=== PATIENT | female | born 1955 | race Caucasian/White ===

== ENCOUNTER → 2020-03-01 11:48 | Outpatient (CLI) | payer OTHER, SELFPAY ==
[2020-03-02 20:59] LABS: COVID19 Sendout Not Detected (Not Detect)
== END ==
PROVIDERS: Visit Provider Physician Assistant
DX: Z11.59 Encounter for screening for other viral diseases (principal)
CPT/HCPCS: 87635

== ENCOUNTER → 2020-04-28 10:58 | Outpatient (CLI) | payer OTHER, SELFPAY ==
[2020-04-29 11:12] LABS: COVID19 Sendout Positive (Not Detect)
== END ==
PROVIDERS: Visit Provider Physician Assistant
DX: U07.1 COVID-19 (principal)
CPT/HCPCS: 87635

== ENCOUNTER → 2022-07-30 08:31 | Outpatient (CLI) | payer MEDICARE, OTHER, SELFPAY ==
[2022-07-30 09:43] LABS: Alanine Aminotransferase 31 IU/L (<35); Albumin 4.3 g/dL (3.5-5.0); Albumin Globulin Ratio 1.3 (1.0-2.8); Alkaline Phosphatase 79 U/L (38-126); Aspartate Aminotransferase 29 IU/L (14-36); Bilirubin Total 0.6 mg/dL (0.2-1.3); Blood Urea Nitrogen 21 mg/dL (7-17); Calcium 9.2 mg/dL (8.4-10.2); Carbon Dioxide 30 mmol/L (22-32); Chloride 103 mmol/L (98-107); Cholesterol 204 mg/dL (140-199); Estimated Glomerular Filt Rate > 60 mL/min (>60); Globulin 3.3 g/dL (1.7-4.1); Glucose 95 mg/dL (80-110); HDL Cholesterol 55 mg/dL (40-60); HEMOLYSIS < 15 (0-50); LDL Cholesterol Calculated 125 mg/dL (<100); Sodium 140 mmol/L (137-145); Total Protein 7.6 g/dL (6.3-8.2); Triglycerides 118 mg/dL (35-150)
[2022-07-30 09:46] LABS: Hemoglobin A1C% w Est Avg Glu 5.7 % (4.0-6.0)
[2022-07-30 09:52] LABS: Free T3, Triiodothyronine Free 3.85 pg/mL (2.77-5.27)
[2022-07-30 10:05] LABS: Thyroid Stimulating Hormone 2.74 uIU/mL (0.47-4.68)
== END ==
PROVIDERS: PCP Nurse Practitioner; Referring Provider Nurse Practitioner; Visit Provider Nurse Practitioner
DX: R73.01 Impaired fasting glucose (principal); E78.5 Hyperlipidemia, unspecified; Z79.899 Other long term (current) drug therapy
CPT/HCPCS: 36415; 80053; 80061; 83036; 84439; 84443; 84481

== ENCOUNTER → 2022-08-03 10:16 | Outpatient (CLI) | payer MEDICARE, OTHER, SELFPAY | PROVIDERS: PCP Nurse Practitioner; Visit Provider Nurse Practitioner | DX: N89.8 Other specified noninflammatory disorders of vagina (principal) | CPT/HCPCS: 87070; 87205 ==

== ENCOUNTER → 2022-08-26 11:19 | Outpatient (CLI) | payer MEDICARE, OTHER, SELFPAY | PROVIDERS: PCP Nurse Practitioner; Referring Provider Nurse Practitioner; Visit Provider Nurse Practitioner | DX: M85.852 Other specified disorders of bone density and structure, left thigh (principal); Z13.820 Encounter for screening for osteoporosis; Z78.0 Asymptomatic menopausal state; Z85.820 Personal history of malignant melanoma of skin | CPT/HCPCS: 77080 ==

== ENCOUNTER → 2022-09-21 09:27 | Outpatient (CLI) | payer MEDICARE, OTHER, SELFPAY ==
--- NOTE | 2022-09-21 09:32 | DI.US.S_ITS ---
PROCEDURE: US CAROTID DOPPLER BI INDICATIONS: MILD CAROTID ARTERY DISEASE AND STENOSIS TECHNIQUE: Color and pulse Doppler interrogation was performed of both carotid systems, with image documentation and velocity measurements. COMPARISON: None. FINDINGS: Stenosis calculations are based on SRU (Society of Radiologists in Ultrasound) criteria. Right side: Brachial blood pressure: 100/65 mm Hg. Common carotid artery peak systolic velocity: 89 cm/sec. Internal carotid artery peak systolic velocity: 115 cm/sec. Internal carotid artery end diastolic velocity: 42 cm/sec. External carotid artery peak systolic velocity: 82 cm/sec. ICA/CCA peak systolic ratio: 1.3 . Abbott scale imaging description: Mild plaque Percent internal carotid artery stenosis: Less than 50% . Vertebral artery: Flow direction is antegrade. Left side: Brachial blood pressure: 101/66 mm Hg. Common carotid artery peak systolic velocity: 97 cm/sec. Internal carotid artery peak systolic velocity: 85 cm/sec. Internal carotid artery end diastolic velocity: 40 cm/sec. External carotid artery peak systolic velocity: 66 cm/sec. ICA/CCA peak systolic ratio: 0.9 . Abbott scale imaging description: No significant plaque Percent internal carotid artery stenosis: Less than 50% . Vertebral artery: Flow direction is antegrade. Incidentally noted hypoechoic solid nodule in the left lobe of the thyroid gland, 0.9 x 0.8 x 0.6 cm. By TI-RADS criteria, no imaging follow-up is necessary for this finding. IMPRESSION: Less than 50% stenosis of the internal carotid arteries bilaterally. Dictated by: Jacinto Jhaveri M.D. on 09/21/2022 at 21:01 Approved by: Jacinto Jhaveri M.D. on 09/21/2022 at 21:06
--- NOTE | 2022-09-21 09:32 | DI.MG.S_ITS ---
BILATERAL DIGITAL SCREENING MAMMOGRAM 3D/2D WITH CAD: 09/21/2022 CLINICAL: Routine screening. Comparison is made to exams dated: 10/05/2020 mammogram, 03/27/2019 mammogram, and 10/25/2017 mammogram - outside location. Both breasts are almost entirely fatty (category a/<25% glandular tissue). Current study was also evaluated with a Computer Aided Detection (CAD) system. No significant masses, calcifications, or other findings are seen in either breast. There has been no significant interval change. IMPRESSION: NEGATIVE There is no mammographic evidence of malignancy. A 1 year screening mammogram is recommended. Based on the Tyrer Cuzick model (a risk assessment model) the patient's lifetime risk is 3.1% and her 10 year risk is 1.5%. According to the ACR, ACS, and NCCN guidelines, an annual breast MRI exam along with mammogram is recommended if the patient's lifetime risk is 20% or greater. This exam was interpreted at Station ID: [id number]. NOTE: For mammograms, a report in lay terms will be sent to the patient. Approximately 15% of breast malignancies will not be visualized mammographically. In the management of a palpable breast mass, a negative mammogram must not discourage biopsy of a clinically suspicious lesion. Electronically Signed By: Jamie Luna M.D., jr/january:09/21/2022 15:02:52 letter sent: Normal Exam ACR BI-RADS Category 1: Negative 3341F
== END ==
PROVIDERS: PCP Nurse Practitioner; Referring Provider Nurse Practitioner; Visit Provider Nurse Practitioner
DX: Z12.31 Encounter for screening mammogram for malignant neoplasm of breast (principal); I65.23 Occlusion and stenosis of bilateral carotid arteries; I77.9 Disorder of arteries and arterioles, unspecified; Z13.6 Encounter for screening for cardiovascular disorders
CPT/HCPCS: 77063; 77067; 93880

== ENCOUNTER 2023-03-24 08:28 | Day surgery (SDC) | payer MEDICARE, OTHER, SELFPAY ==
[2023-03-24] MEDS: LACTATED RINGERS 1,000 ML 42 ML IV (08:39)
[2023-03-24 08:47] VITALS: BMI 23.6
[2023-03-24 08:59] VITALS: BP 109/72; PULSE 66; RESP 16; TEMP 36.4; O2SAT 98
--- NOTE | 2023-03-24 09:31 | PM.HP.1 ---
History of Present Illness History of Present Illness Date Patient Seen: 03/24/23 Time Patient Seen: 09:31 Chief complaint: SDC Narrative: Juliette is a 67-year-old woman who is here for colonoscopy. Her last 1 was about 10 years ago and was normal. No family history of colon cancer. [facility] Medical History Actinic keratosis (~2005) Elevated fasting blood sugar Endometriosis Fibroids Headache Hearing loss HLD (hyperlipidemia) Malignant melanoma (~2005) Melanoma Mouth sores (~2017) Osteopenia determined by x-ray Postmenopausal HRT (hormone replacement therapy) Rheumatic fever Surgical History Anesthesia History of hysterectomy (~1994) History of surgery (~1995) Family History Father History of heart disease Mother Alcoholic Liver failure Sister Diabetes mellitus Hyperlipidemia Hypertension Mental health problem Sister Hypertension Sister Diabetes mellitus Sister Diabetes mellitus Mental health problem Depression Sister Hypertension Social History (System 09/02/22 @ 08:02 by Clarissa Manrique) household members: spouse Smoking Status: Never smoker alcohol intake: current Meds Home Medications and Allergies Home Medications Medication Instructions Recorded Confirmed Type conjugated estrogens 0.625 mg/gram 0.625 mg vaginal DAILY 08/03/22 03/24/23 Rx vaginal cream (Premarin) post-menapausal #30 grams simvastatin 10 mg tablet 10 mg PO DAILY HIGH CHOLESTEROL 08/03/22 03/24/23 Rx #90 tabs valacyclovir 500 mg tablet 500 mg PO DAILY mouth soars #90 08/05/22 03/24/23 Rx tabs estradiol 0.5 mg tablet 0.5 mg PO DAILY #90 tabs 09/09/22 10/28/22 Rx sodium,potassium,mag sulfates 17.5 See Rx Instructions PO .COMPLEX 12/22/22 03/24/23 Rx gram-3.13 gram-1.6 gram oral soln #354 mL (Suprep Bowel Prep Kit) Allergies Allergy/AdvReac Type Severity Reaction Status Date / Time No Known Drug Allergies Allergy Unverified 09/02/22 08:02 Exam Vital Signs (past 8 hours): - 03/24/23 08:59 Temperature 97.6 F Pulse Rate 66 Respiratory Rate 16 Blood Pressure 109/72 Pulse Oximetry 98 Oxygen Delivery Method Room Air Oxygen Delivery Method Room Air Const General: healthy appearing Assessment & Plan Assessment and plan (1) Colon cancer screening: Status: Acute Plan We reviewed the risks and benefits of colonoscopy for colon cancer screening and she would like to proceed.
[2023-03-24 10:00] VITALS: BP 99/61; PULSE 57; RESP 16; TEMP 36.2; O2SAT 96
--- NOTE | 2023-03-24 10:04 | P.OP.COLON_ITS ---
Operative Date/Time/Diagnoses Date of procedure: 03/24/23 Time of procedure: 10:04 Pre-op diagnosis: Colon cancer screening Post-op diagnosis: same Procedure & Clinicians Study performed: Colonoscopy Same procedure as scheduled: Yes Surgeon: Maximo Saba Procedure Notes Procedure in detail: Surgeon: Maximo Saba MD Anesthesia: Leanna Jaeger CRNA Procedure: The patient was brought to the endoscopy suite, placed in left lateral decubitus position. The patient was connected to monitoring devices. A time-out was performed. Sedation was administered. Once the patient was adequately sedated, a digital rectal exam was performed and was normal. The scope was then inserted and advanced to the cecum where the appendiceal orifice was identified and photographed. The scope was then slowly withdrawn over greater than 6 minutes. The mucosa was thoroughly inspected. No polyps or othe r abnormalities were found. The scope was retroflexed in the rectum. No abnormalities were seen. The scope was straightened and removed. The patient was awakened and brought to recovery. Scope withdrawal time: 7 minutes Sedation time: 11 minutes EBL: 0 Findings: Normal colon Post-procedure Recommendations: Colonoscopy in 10 years Disposition: PACU
[2023-03-24 10:05] VITALS: BP 101/59; PULSE 52; RESP 16; O2SAT 97
--- NOTE | 2023-03-24 10:05 | SUR.PHASEI ---
Received to PACU after colonoscopy with MAC. Report from WENDI Ram and Lynnette Zhang RN.
[2023-03-24 10:10] VITALS: BP 98/55; PULSE 52; RESP 11; O2SAT 98
[2023-03-24 10:15] VITALS: BP 103/86; PULSE 52; RESP 20; TEMP 36.5; O2SAT 98
[2023-03-24 10:16] VITALS: BP 101/80; PULSE 52; RESP 16; TEMP 36.5; O2SAT 99
== END 2023-03-24 10:40 | disposition home or self-care (01) ==
PROVIDERS: PCP Nurse Practitioner; Referring Provider Surgery; Visit Provider Surgery
PROC: 0DJD8ZZ Inspection of Lower Intestinal Tract, Via Natural or Artificial Opening Endoscopic (ICD-10-PCS; CPT 45378; principal; 2023-03-24 09:30)
DX: Z12.11 Encounter for screening for malignant neoplasm of colon (principal)
CPT/HCPCS: G0121

== ENCOUNTER → 2023-10-05 07:45 | Outpatient (CLI) | payer MEDICARE, OTHER, SELFPAY ==
--- NOTE | 2023-10-05 07:46 | DI.MG.S_ITS ---
BILATERAL DIGITAL SCREENING MAMMOGRAM 3D/2D WITH CAD: 10/05/2023 CLINICAL: Routine screening. Comparison is made to exams dated: 09/21/2022 mammogram - [facility], 10/05/2020 mammogram, and 03/27/2019 mammogram - outside location. Both breasts are heterogeneously dense, which may obscure small masses (category c / 51-75% glandular tissue). Current study was also evaluated with a Computer Aided Detection (CAD) system. No significant masses, calcifications, or other findings are seen in either breast. There has been no significant interval change. IMPRESSION: NEGATIVE There is no mammographic evidence of malignancy. A 1 year screening mammogram is recommended. Based on the Tyrer Cuzick model (a risk assessment model) the patient's lifetime risk is 6.8% and her 10 year risk is 3.4%. According to the ACR, ACS, and NCCN guidelines, an annual breast MRI exam along with mammogram is recommended if the patient's lifetime risk is 20% or greater. This exam was interpreted at Station ID: [id number]. NOTE: For mammograms, a report in lay terms will be sent to the patient. Approximately 15% of breast malignancies will not be visualized mammographically. In the management of a palpable breast mass, a negative mammogram must not discourage biopsy of a clinically suspicious lesion. Electronically Signed By: Philipp gaspar/january:10/05/2023 12:11:49 letter sent: Normal Exam ACR BI-RADS Category 1: Negative 3341F
== END ==
LOC: MAMMO 07:45
PROVIDERS: PCP Nurse Practitioner; Referring Provider Nurse Practitioner; Visit Provider Nurse Practitioner
DX: Z12.31 Encounter for screening mammogram for malignant neoplasm of breast (principal); R92.333 Mammographic heterogeneous density, bilateral breasts
CPT/HCPCS: 77063; 77067

== ENCOUNTER → 2024-05-04 08:18 | Outpatient (CLI) | payer MEDICARE, OTHER, SELFPAY ==
[2024-05-04 10:25] LABS: Alanine Aminotransferase 27 IU/L (<35); Albumin 4.3 g/dL (3.5-5.0); Albumin Globulin Ratio 1.4 (1.0-2.8); Alkaline Phosphatase 66 U/L (38-126); Aspartate Aminotransferase 35 IU/L (14-36); BUN Creatinine Ratio 22.1 (6-22); Bilirubin Total 0.5 mg/dL (0.2-1.3); Blood Urea Nitrogen 21 mg/dL (7-17); Calcium 9.4 mg/dL (8.4-10.2); Carbon Dioxide 30 mmol/L (22-32); Chloride 103 mmol/L (98-107); Cholesterol 263 mg/dL (140-199); Estimated Glomerular Filt Rate > 60 mL/min (>60); Globulin 3.1 g/dL (1.7-4.1); Glucose 90 mg/dL (80-110); HDL Cholesterol 75 mg/dL (40-60); HEMOLYSIS < 15 (0-50); LDL Cholesterol Calculated 160 mg/dL (<100); Potassium 4.3 mmol/L (3.4-5.1); Sodium 138 mmol/L (137-145); Total Protein 7.4 g/dL (6.3-8.2); Triglycerides 139 mg/dL (35-150)
== END ==
LOC: LAB 08:19
PROVIDERS: PCP Registered Nurse Diabetes Educator; Referring Provider Nurse Practitioner; Visit Provider Nurse Practitioner
DX: E78.5 Hyperlipidemia, unspecified (principal); Z79.899 Other long term (current) drug therapy
CPT/HCPCS: 36415; 80053; 80061

== ENCOUNTER → 2024-06-22 08:59 | Outpatient (CLI) | payer MEDICARE, OTHER, SELFPAY ==
--- NOTE | 2024-06-22 09:01 | DI.RAD.S_ITS ---
PROCEDURE: XR LUMBAR SPINE MIN 4V INDICATIONS: BACK PAIN TECHNIQUE: Four views of the lumbar spine were acquired including bilateral obliques. COMPARISON: None. FINDINGS: Bones: Five nonrib-bearing vertebrae are present. There is normal bony alignment. No vertebral body compression fractures. No suspicious bony lesions. Mild degenerative joint space loss and slight hypertrophy at the L4-5 and L5-S1 facet joints. Soft tissues: Overlying bowel gas pattern is normal. No suspicious soft tissue calcifications. Oblique images: No pars defects. IMPRESSION: Mild lower lumbar facet arthropathy. Dictated by: Laura Benavidez M.D. on 06/22/2024 at 11:49 Approved by: Laura Benavidez M.D. on 06/22/2024 at 11:49
== END ==
PROVIDERS: PCP Registered Nurse Diabetes Educator; Referring Provider Physical Medicine & Rehabilitation; Visit Provider Physical Medicine & Rehabilitation
DX: M54.30 Sciatica, unspecified side (principal); M47.816 Spondylosis without myelopathy or radiculopathy, lumbar region; M47.817 Spondylosis without myelopathy or radiculopathy, lumbosacral region
CPT/HCPCS: 72110

== ENCOUNTER → 2024-07-12 11:34 | Outpatient (CLI) | payer MEDICARE, OTHER, SELFPAY ==
--- NOTE | 2024-07-12 11:36 | DI.MRI.S_ITS ---
PROCEDURE: MR LUMBAR SPINE WO CON INDICATIONS: Right L5 Radicu TECHNIQUE: Noncontrast sagittal T1 spin echo and T2 fast echo, sagittal STIR, and T2 fast spin echo through the lumbar spine. In cases with scoliosis, additional coronal T2 fast spin echo may be performed. COMPARISON: [facility], CR, XR LUMBAR SPINE MIN 4V, 06/22/2024, 9:09.No neural FINDINGS: Image quality: Excellent. Alignment and Curvature: There is normal bony alignment. Bone Marrow: Marrow is of normal overall signal. No acute vertebral body compression fractures. Spinal Cord: Conus medullaris terminates at the L1 level. Visualized cord demonstrates normal signal and size. Paraspinous Soft Tissues: No paravertebral masses. T12-L1: Normal appearance. L1-L2: Loss of disc signal. Mild, diffuse disc bulge. Mild bilateral facet hypertrophy. No central stenosis. No neural foraminal narrowing. No neural compression. L2-L3: Loss of disc signal. Mild, diffuse disc bulge. Mild bilateral facet hypertrophy. No central stenosis. No neural foraminal narrowing. No neural compression. L3-L4: Loss of disc signal. Mild, diffuse disc bulge. Mild bilateral facet hypertrophy. No central stenosis. No neural foraminal narrowing. No neural compression. L4-L5: Loss of disc signal. Mild, diffuse disc bulge. Mild bilateral facet hypertrophy. No central stenosis. No neural foraminal narrowing. No neural compression. L5-S1: Loss of disc signal. Mild, diffuse disc bulge. Mild bilateral facet hypertrophy. No central stenosis. No neural foraminal n compression. arrowing. IMPRESSION: Multilevel degenerative disc disease. Multilevel facet arthropathy. No severe central canal stenosis. No severe neural foraminal stenosis. No neural compression. Dictated by: Anastasia Stoll MD, PhD on 07/12/2024 at 12:24 Approved by: Anastasia Stoll MD, PhD on 07/12/2024 at 12:30
== END ==
PROVIDERS: PCP Registered Nurse Diabetes Educator; Referring Provider Physical Medicine & Rehabilitation; Visit Provider Physical Medicine & Rehabilitation
DX: M47.816 Spondylosis without myelopathy or radiculopathy, lumbar region (principal); M47.817 Spondylosis without myelopathy or radiculopathy, lumbosacral region; M51.369 Other intervertebral disc degeneration, lumbar region without mention of lumbar back pain or lower extremity pain; M51.379 Other intervertebral disc degeneration, lumbosacral region without mention of lumbar back pain or lower extremity pain
CPT/HCPCS: 72148

== ENCOUNTER 2024-12-28 12:58 | Emergency (ER) | payer MEDICARE, OTHER, SELFPAY ==
[2024-12-28 13:12] VITALS: BP 110/57; PULSE 82; RESP 20; TEMP 37; O2SAT 96; BMI 23.1
--- NOTE | 2024-12-28 16:11 | EKG_ITS ---
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
[2024-12-28] MEDS: ONDANSETRON 4 MG/2 ML INJ IV (16:35)
[2024-12-28 16:41] LABS: Add Manual Diff / Slide Review NO; Basophils Absolute Auto 0 /uL (0-100); Basophils Percent Auto 0.4 % (0-2); Eosinophils Absolute Auto 0 /uL (0-450); Eosinophils Percent Auto 0.4 % (2-4); Hematocrit 44.7 % (36-46); Hemoglobin 15.2 g/dL (12.0-16.0); Lymphocytes Absolute Auto 1300 /uL (1100-4500); Lymphocytes Percent Auto 21.7 % (25-40); Mean Corpuscular Hemoglobin 32.2 PG (26-34); Mean Corpuscular Volume 94.6 fL (80-100); Monocytes Absolute Auto 400 /uL (0-900); Neutrophils Absolute Auto 4400 /uL (1500-7000); Neutrophils Percent Auto 71.5 % (50-75); Platelet Count 223 X10^3/uL (150-400); Red Blood Cell Count 4.73 X10^6/uL (4.0-5.2); White Blood Cell Count 6.1 X10^3/uL (4.5-11.0)
[2024-12-28 16:58] LABS: Alanine Aminotransferase 32 IU/L (<35); Albumin 4.7 g/dL (3.5-5.0); Albumin Globulin Ratio 1.3 (1.0-2.8); Alkaline Phosphatase 64 U/L (38-126); Aspartate Aminotransferase 39 IU/L (14-36); BUN Creatinine Ratio 22.2 (6-22); Bilirubin Total 0.6 mg/dL (0.2-1.3); Blood Urea Nitrogen 20 mg/dL (7-17); Calcium 9.5 mg/dL (8.4-10.2); Carbon Dioxide 27 mmol/L (22-32); Chloride 102 mmol/L (98-107); Estimated Glomerular Filt Rate > 60 mL/min (>60); Globulin 3.6 g/dL (1.7-4.1); Glucose 88 mg/dL (70-99); HEMOLYSIS < 15 (0-50); Lipase 62 U/L (23-300); Potassium 4.2 mmol/L (3.4-5.1); Sodium 139 mmol/L (137-145); Total Protein 8.3 g/dL (6.3-8.2)
--- NOTE | 2024-12-28 17:58 | ED.ABDPAIN ---
HPI - Abdominal Pain <Shirley Yap PA-C - Last Filed: 12/28/24 19:27> General Chief Complaint: Abdominal Pain Stated Complaint: Took wrong dose of tirzepatide Time Seen by Provider: 12/28/24 16:34 Mode of arrival: Ambulatory History of Present Illness HPI narrative: Ms. Pacheco is a pleasant 69-year-old female with a past medical history of hyperlipidemia, melanoma, increased fasting blood sugar who presents to the emergency department for nausea, vomiting, abdominal cramping after accidentally administering a higher dose of tirzepatide then she intended. Patient purchased [employer] to help with weight loss, she was supposed to take her 1st dose of 0.25 mL but she accidentally injected 0.5 mL at 12:45 p.m. yesterday. Today when patient woke up she felt extremely nauseous, had nonbloody vomiting, abdominal cramping, and is now also starting to have a headache. She is feeling lightheaded. She comes to the ER for further management as she is unsure what to do since she took too high of a dose. She denies abdominal pain, fevers, chills, dysuria. Related Data Home Medications ?Medication ?Instructions ?Recorded ?Confirmed Fluorouracil Cream 5% .Route 08/08/23 08/13/24 Metronidazole 0.75% cream .Route 08/08/23 08/13/24 Previous Rx's ?Medication ?Instructions ?Recorded conjugated estrogens 0.625 mg/gram See Rx Instructions vaginal 08/13/24 vaginal cream (Premarin) .COMPLEX post-menapausal #30 grams estradiol 0.5 mg tablet 0.5 mg PO DAILY #90 tabs 08/13/24 simvastatin 10 mg tablet 10 mg PO DAILY HIGH CHOLESTEROL 08/13/24 #90 tabs valacyclovir 1 gram tablet 1,000 mg PO BID for acute 08/13/24 breakouts #20 tabs ondansetron 4 mg disintegrating 4 mg PO Q8H PRN nausea and 12/28/24 tablet vomiting #20 tabs Allergies Allergy/AdvReac Type Severity Reaction Status Date / Time No Known Drug Allergies Allergy Verified 12/28/24 13:12 Review of Systems <Shirley Yap PA-C - Last Filed: 12/28/24 19:27> Review of Systems ROS Unobtainable: All systems reviewed & are unremarkable except as noted in HPI and below Patient History <Shirley Yap PA-C - Last Filed: 12/28/24 19:27> Medical History Recurrent cold sores Dyslipidemia Herniated nucleus pulposus, L5-S1 Facet arthropathy, lumbar Adverse reaction to statin medication Amputation of right thumb Osteopenia determined by x-ray Postmenopausal HRT (hormone replacement therapy) Melanoma Actinic keratosis (~2005) Headache Rheumatic fever Mouth sores (~2017) Hearing loss Fibroids Endometriosis Malignant melanoma (~2005) Elevated fasting blood sugar Surgical History Anesthesia History of surgery (~1995) History of hysterectomy (~1994) Family History Father History of heart disease Mother Alcoholic Liver failure Sister Diabetes mellitus Hyperlipidemia Hypertension Mental health problem Sister Hypertension Sister Diabetes mellitus Sister Diabetes mellitus Mental health problem Depression Sister Hypertension Social History household members: spouse Smoking Status: Never smoker alcohol intake: current Smoking Status: Never smoker Exam <Shirley Yap PA-C - Last Filed: 12/28/24 19:27> Narrative Exam Narrative: GENERAL: 69 year old patient appears stated age. Well-developed patient, in no acute distress. HEAD: Atraumatic. Normocephalic. CARDIOVASCULAR: Regular rate and rhythm. RESPIRATORY: ?Nonlabored respirations. ?Speaking in clear, full sentences. ?Clear to auscultation. Breath sounds equal bilaterally. No wheezes, rales, or rhonchi. ? GASTROINTESTINAL: Abdomen soft, non-tender, nondistended. BS present. EXTREMITIES: No edema or joint tenderness. NEURO: AOx3. ?Clear speech. ?Moves all 4 extremities appropriately. SKIN: No rash or erythema of visible areas Initial Vital Signs Initial Vital Signs: Vital Signs Temperature 98.6 F 12/28/24 13:12 Pulse Rate 82 12/28/24 13:12 Respiratory Rate 20 12/28/24 13:12 Blood Pressure 110/57 L 12/28/24 13:12 Pulse Oximetry 96 12/28/24 13:12 Oxygen Delivery Method Room Air 12/28/24 13:12 <Gabriella Wood DO - Last Filed: 01/07/25 19:39> Initial Vital Signs Initial Vital Signs: Vital Signs Temperature 98.6 F 12/28/24 13:12 Pulse Rate 82 12/28/24 13:12 Respiratory Rate 20 12/28/24 13:12 Blood Pressure 110/57 L 12/28/24 13:12 Pulse Oximetry 96 12/28/24 13:12 Oxygen Delivery Method Room Air 12/28/24 13:12 Course <Shirley Yap PA-C - Last Filed: 12/28/24 19:27> Orders Ordered: Discontinued Medications Sodium Chloride (Normal Saline 0.9%) 500 mls @ 1,000 mls/hr IV BOLUS ONE Stop: 12/28/24 18:22 Last Infusion: 12/28/24 18:32 Dose: Infused Documented By: Admin: 12/28/24 18:07 Dose: 1,000 mls/hr Documented By: ANNEMARIE Ketorolac Tromethamine (Ketorolac 30 Mg/Ml Vial) 15 mg IV NOW ONE Stop: 12/28/24 17:54 Last Admin: 12/28/24 18:06 Dose: 15 mg Documented By: ANNEMARIE Ondansetron HCl (Ondansetron 4 Mg/2 Ml Inj) 4 mg IV NOW PRN PRN Reason: Nausea And Vomiting Last Admin: 12/28/24 16:35 Dose: 4 mg Documented By: Ondansetron HCl (Ondansetron 4 Mg Odt) 4 mg PO NOW PRN PRN Reason: Nausea And Vomiting Vital Signs Vital signs: Vital Signs - 8 hr 12/28/24 13:12 Temperature 98.6 F Pulse Rate 82 Respiratory Rate 20 Blood Pressure 110/57 L Pulse Oximetry 96 Oxygen Delivery Method Room Air <Gabriella Wood DO - Last Filed: 01/07/25 19:39> Orders Ordered: Discontinued Medications Sodium Chloride (Normal Saline 0.9%) 500 mls @ 1,000 mls/hr IV BOLUS ONE Stop: 12/28/24 18:22 Last Infusion: 12/28/24 18:32 Dose: Infused Documented By: Admin: 12/28/24 18:07 Dose: 1,000 mls/hr Documented By: ANNEMARIE Ketorolac Tromethamine (Ketorolac 30 Mg/Ml Vial) 15 mg IV NOW ONE Stop: 12/28/24 17:54 Last Admin: 12/28/24 18:06 Dose: 15 mg Documented By: ANNEMARIE Ondansetron HCl (Ondansetron 4 Mg/2 Ml Inj) 4 mg IV NOW PRN PRN Reason: Nausea And Vomiting Last Admin: 12/28/24 16:35 Dose: 4 mg Documented By: Ondansetron HCl (Ondansetron 4 Mg Odt) 4 mg PO NOW PRN PRN Reason: Nausea And Vomiting Vital Signs Vital signs: Vital Signs - 8 hr 12/28/24 13:12 Temperature 98.6 F Pulse Rate 82 Respiratory Rate 20 Blood Pressure 110/57 L Pulse Oximetry 96 Oxygen Delivery Method Room Air MDM - Abdominal Pain <Shirley Trudy Yap PA-C - Last Filed: 12/28/24 19:27> Medical Records Attestation: I reviewed the patient's medical records. Lab Data 12/28/24 16:29 12/28/24 16:29 Labs: Lab Results 12/28/24 Range/Units 16:29 WBC 6.1 (4.5-11.0) X10^3/uL RBC 4.73 (4.0-5.2) X10^6/uL Hgb 15.2 (12.0-16.0) g/dL Hct 44.7 (36-46) % MCV 94.6 (80-100) fL MCH 32.2 (26-34) PG MCHC 34.0 (30-36) % RDW 14.0 (11.6-14.8) % Plt Count 223 (150-400) X10^3/uL Neut % (Auto) 71.5 (50-75) % Lymph % (Auto) 21.7 L (25-40) % Divide % (Auto) 6.0 (3-14) % Eos % (Auto) 0.4 L (2-4) % Baso % (Auto) 0.4 (0-2) % Neut # (Auto) 4400 (3799-2007) /uL Lymph # (Auto) 1300 (7339-2694) /uL Divide # (Auto) 400 (0-900) /uL Eos # (Auto) 0 (0-450) /uL Baso # (Auto) 0 (0-100) /uL Sodium 139 (137-145) mmol/L Potassium 4.2 (3.4-5.1) mmol/L Chloride 102 (98-107) mmol/L Carbon Dioxide 27 (22-32) mmol/L BUN 20 H (7-17) mg/dL Creatinine 0.90 (0.52-1.04) mg/dL Estimated GFR > 60 (>60) mL/min BUN/Creatinine Ratio 22.2 H (6-22) Glucose 88 (70-99) mg/dL Calcium 9.5 (8.4-10.2) mg/dL Total Bilirubin 0.6 (0.2-1.3) mg/dL AST 39 H (14-36) IU/L ALT 32 (<35) IU/L Alkaline Phosphatase 64 (38-126) U/L Total Protein 8.3 H (6.3-8.2) g/dL Albumin 4.7 (3.5-5.0) g/dL Globulin 3.6 (1.7-4.1) g/dL Albumin/Globulin Ratio 1.3 (1.0-2.8) Lipase 62 (23-300) U/L [facility] Narrative Medical decision making narrative: 69-year-old female with a past medical history of hyperlipidemia, melanoma, increased fasting blood sugar who presents to the emergency department for nausea, vomiting, abdominal cramping after accidentally administering a higher dose of tirzepatide then she intended. Differential diagnosis includes but isn't limited to medication air, adverse drug reaction, dehydration, gastroenteritis, etc. On exam the patient is in no acute distress, nontoxic appearing, vital signs within normal limits, abdomen soft and nontender. Lab work and Zofran obtained prior to my evaluation, patient is feeling much better at this time. We will treat with 500 mL IV fluid, Toradol for headache, recommended small but frequent sips of electrolyte beverage, discussed the patient will likely have nausea for at least the next week. Patient was shown the appropriate way to dose her medication. ECG was obtained due to nursing initiated abdominal pain order set which reveals normal sinus rhythm with a rate of 69 beats per minute and a QTC of 426. Patient not having any chest pain. Labs reveal normal WBC count 6.1, hemoglobin 15.2 hematocrit 44.7, BUN 20, creatinine 0.91, BUN creatinine ratio slightly elevated 22.2. AST very mildly elevated 39, normal ALT, alkaline phosphatase, normal lipase 62. Patient feeling much better after ED treatment, requesting discharge home, tolerating p.o.. Zofran sent to pharmacy of choice. Discussed supportive care, ED return precautions. Patient verbalized understanding all information agreeable with the plan. She is stable for discharge home. <Gabriella Wood, DO - Last Filed: 01/07/25 19:39> Lab Data Labs: Lab Results 12/28/24 Range/Units 16:29 WBC 6.1 (4.5-11.0) X10^3/uL RBC 4.73 (4.0-5.2) X10^6/uL Hgb 15.2 (12.0-16.0) g/dL Hct 44.7 (36-46) % MCV 94.6 (80-100) fL MCH 32.2 (26-34) PG MCHC 34.0 (30-36) % RDW 14.0 (11.6-14.8) % Plt Count 223 (150-400) X10^3/uL Neut % (Auto) 71.5 (50-75) % Lymph % (Auto) 21.7 L (25-40) % Divide % (Auto) 6.0 (3-14) % Eos % (Auto) 0.4 L (2-4) % Baso % (Auto) 0.4 (0-2) % Neut # (Auto) 4400 (0702-2537) /uL Lymph # (Auto) 1300 (6541-8298) /uL Divide # (Auto) 400 (0-900) /uL Eos # (Auto) 0 (0-450) /uL Baso # (Auto) 0 (0-100) /uL Sodium 139 (137-145) mmol/L Potassium 4.2 (3.4-5.1) mmol/L Chloride 102 (98-107) mmol/L Carbon Dioxide 27 (22-32) mmol/L BUN 20 H (7-17) mg/dL Creatinine 0.90 (0.52-1.04) mg/dL Estimated GFR > 60 (>60) mL/min BUN/Creatinine Ratio 22.2 H (6-22) Glucose 88 (70-99) mg/dL Calcium 9.5 (8.4-10.2) mg/dL Total Bilirubin 0.6 (0.2-1.3) mg/dL AST 39 H (14-36) IU/L ALT 32 (<35) IU/L Alkaline Phosphatase 64 (38-126) U/L Total Protein 8.3 H (6.3-8.2) g/dL Albumin 4.7 (3.5-5.0) g/dL Globulin 3.6 (1.7-4.1) g/dL Albumin/Globulin Ratio 1.3 (1.0-2.8) Lipase 62 (23-300) U/L Discharge Plan Departure Patient Disposition: Home Clinical Impression: Accidental medication error Qualifiers: Encounter type: initial encounter Qualified Code(s): T50.901A - Poisoning by unspecified drugs, medicaments and biological substances, accidental (unintentional), initial encounter Nausea & vomiting Qualifiers: Vomiting type: unspecified Qualified Code(s): R11.2 - Nausea with vomiting, unspecified Instructions: DI for Nausea -- Adult Activity Restrictions/Additional Instructions: Dear Ms. Márquezton, Thank you for coming to the emergency department. Today you were treated with IV fluids, IV ketorolac, and IV ondansetron. I have prescribed you oral ondansetron/Zofran to take if needed as needed at home for nausea and vomiting. Please take small but frequent sips of an electrolyte beverage such as Pedialyte or Gatorade. Please be aware that your symptoms can last for a week as the medication is in your system for this long. Please return to the ER if you develop severe or worsening abdominal pain, persistent vomiting or any other concerns. Please follow up with your primary care doctor within the next 2-3 days for ER follow-up. (If you do not have a PCP you can call [phone]. ?to schedule an appointment with an [facility] Primary Care Provider) IF YOU DEVELOP ANY NEW OR WORSENING SYMPTOMS, RETURN TO THE ER! Please read the attached instructions, they highlight more specific treatments and interventions for you at home. Thank you for letting me participate in your care, Shirley Yap PA-C Prescriptions: New ondansetron 4 mg tablet,disintegrating 4 mg PO Q8H PRN (Reason: nausea and vomiting) Qty: 20 0RF No Action Metronidazole 0.75% cream .Route Rx Instructions: for acne Fluorouracil Cream 5% .Route Rx Instructions: for dry itchy patches on back estradiol 0.5 mg tablet 0.5 mg PO DAILY Qty: 90 3RF Rx Instructions: Take 1 tab daily for HRT and to treat bone density impairment Premarin 0.625 mg/gram cream See Rx Instructions vaginal .COMPLEX Qty: 30 11RF Rx Instructions: Insert vaginally each night for 14 days then 2-3 times per week thereafter valacyclovir 1 gram tablet 1,000 mg PO BID Qty: 20 4RF Rx Instructions: Take 1 tab by mouth until resolved. simvastatin 10 mg tablet 10 mg PO DAILY Qty: 90 0RF Rx Instructions: Take 1 tab at bedtime daily Referrals: Graeme Josue ARNP [Primary Care Provider, Medical] Stand Alone Forms: Patient Portal/API ED Sign-out <Gabriella Wood DO - Last Filed: 01/07/25 19:39> Cosign ED Attending [employer] Attestation: I was immediately available in the department for consultation.
[2024-12-28] MEDS: KETOROLAC 30 MG/ML VIAL 15 MG IV (18:06)
[2024-12-28] MEDS: SODIUM CHLORIDE 0.9% 500 ML 1000 ML IV (18:07)
[2024-12-28 19:29] VITALS: BP 142/83; PULSE 72; RESP 15; O2SAT 98
== END 2024-12-28 19:29 | disposition home or self-care (01) ==
PROVIDERS: Emergency Medicine; Emergency Provider Physician Assistant; PCP Registered Nurse Diabetes Educator
DX: T50.991A Poisoning by other drugs, medicaments and biological substances, accidental (unintentional), initial encounter (principal); R11.2 Nausea with vomiting, unspecified; R10.9 Unspecified abdominal pain
CPT/HCPCS: 80053; 83690; 85025; 93005; 96374; 96375; 99283; 99284; J1885; J2405